=== PATIENT | female | born 1950 | race Caucasian/White ===

== ENCOUNTER → 2018-11-01 | Outpatient (CLI) | payer OTHER ==
[~2018-11-01] MED LIST: ADVAIR 250-501 EACH; ADVAIR 250-501 EACH INH; ALBUTEROL INH; BACTROBAN22 GM TP; CIPRO500 MG PO; CLEOCIN HCL300 MG PO; CLINDAMYCIN HC150 MG PO; HYDROCHLOROTHIA25 M1 PO; HYDROCODON-ACE1 EAC7 PO; IBUPROFEN 800800 M1 PO; PREDNISONE 20 M20 M1 PO; PROVENTIL; SINGULAIR 10 MG10 M1 PO; TOPROL XL25 MG PO; ZANTAC 150MG T150 M1 PO; ZOLOFT100 MG PO
[2018-11-01 12:16] LABS: BE 2.7 mmol/L (-2 to +3); PCO2 44.3 mmHg (35.0-45.0); pH 7.414 (7.340-7.450)
[2018-11-01 12:20] LABS: PO2 52.5 mmHg (75.0-100.0)
== END ==
LOC: M.PUL 10:49
PROVIDERS: Internal Medicine Pulmonary Disease
DX: I51.7 Cardiomegaly (principal); J44.9 Chronic obstructive pulmonary disease, unspecified